=== PATIENT | female | born 1960 | race Caucasian/White ===

== ENCOUNTER 2016-12-15 18:35 | Emergency (ER) | payer BC ==
[~2016-12-15] VITALS: Ht 160 cm; Wt 86.0 kg
[2016-12-15 18:39] VITALS: Ht 160 cm; Wt 86.0 kg
--- NOTE | 2016-12-15 22:29 | ERA ---
ER Documentation Chief Complaint Date/Time DATE: 12/15/16 TIME: 22:29 Chief Complaint headaches x 3 weeks HPI The patient is a 55-year-old female, presenting to the ER because of diffuse headache for the last 3 weeks. She was seen by her physician who prescribed Naprosyn. She denies fever, chills, facial pain, neck pain, chest pain, abdominal pain, vomiting, dysuria, diarrhea. She does not smoke nor drink Past medical history: History of left breast cancer, status post chemotherapy and radiation therapy in 2000, hypertension Past Surgical history: Left mastectomy with reconstruction, left knee arthroscopy ROS All systems reviewed and are negative except as per history of present illness. Medications Home Meds Active Scripts Ibuprofen* (Motrin*) 600 Mg Tab, 600 MG PO Q6, #20 TAB Prov:CHENCHO WASHINGTON MD 12/16/16 Reported Medications Atenolol* (Atenolol*) 100 Mg Tablet, 50 MG PO DAILY, #30 TAB TAKE HALF TABLET (50mg) PO DAILY 12/16/16 Naproxen* (Naproxen*) 500 Mg Tablet, 500 MG PO BID Y for PAIN, TAB 12/16/16 Allergies Allergies: Coded Allergies: No Known Allergy (Unverified , 12/15/16) PMhx/Soc History of Surgery: Yes (L BREAST FOR CA, MASTECTOMY WITH CONSTRUCTION) Anesthesia Reaction: No Hx Neurological Disorder: No Hx Respiratory Disorders: No Hx Cardiac Disorders: Yes (HTN) Hx Psychiatric Problems: No Hx Miscellaneous Medical Probl: Yes (CHEMO THERAPY 11 YEARS AGO ) Hx Alcohol Use: No Hx Substance Use: No Hx Tobacco Use: No Physical Exam Vitals Vital Signs Date Time Temp Pulse Resp B/P Pulse Ox O2 Delivery O2 Flow Rate FiO2 12/15/16 18:39 97.1 70 20 190/106 98 Physical Exam Const: No acute distress. Head: Atraumatic. Eyes: Normal Conjunctiva. ENT: Normal External Ears, Nose and Mouth. Neck: Full range of motion. No meningismus. Resp: Clear to auscultation bilaterally. Cardio: Regular rate and rhythm. Abd: Soft, non distended, normal bowel sounds, non tender. Skin: No petechiae or rashes. Back: No midline or flank tenderness. Ext: No cyanosis, or edema. Neur: Awake and alert. No focal deficit Psych: Normal Mood and Affect. Result Diagram: 10/13/17 2318 12/15/168 Results 24 hrs Laboratory Tests Test 12/15/16 23:18 White Blood Count 9.010^3/ul Red Blood Count 4.6410^6/ul Hemoglobin 14.2g/dl Hematocrit 42.8% Mean Corpuscular Volume 92.2fl Mean Corpuscular Hemoglobin 30.6pg Mean Corpuscular Hemoglobin Concent 33.2g/dl Red Cell Distribution Width 13.7% Platelet Count 24327^3/UL Mean Platelet Volume 10.2fl Neutrophils % 41.1% Lymphocytes % 49.1% Monocytes % 7.0% Eosinophils % 2.1% Basophils % 0.4% Nucleated Red Blood Cells % 0.0/100WBC Neutrophils # 3.710^3/ul Lymphocytes # 4.410^3/ul Monocytes # 0.610^3/ul Eosinophils # 0.210^3/ul Basophils # 0.010^3/ul Nucleated Red Blood Cells # 0.010^3/ul Prothrombin Time 12.7Sec Prothrombin Time Ratio 1.0 INR International Normalized Ratio 0.95 Activated Partial Thromboplast Time 27.5Sec Sodium Level 134mmol/L Potassium Level 4.2mmol/L Chloride Level 105mmol/L Carbon Dioxide Level 26mmol/L Anion Gap 7 Blood Urea Nitrogen 16mg/dl Creatinine 0.69mg/dl Glucose Level 109mg/dl Calcium Level 9.9mg/dl Current Medications Medications (Trade) Dose Ordered Sig/Tyrese Route PRN Reason Start Time Stop Time Status Last Admin Dose Admin Acetaminophen/ Hydrocodone Bitart (Helen (5/325)) 1 tab ONCE ONCE PO 12/15/16 23:00 12/15/16 23:01 DC 12/15/16 23:26 Ondansetron HCl (Zofran Odt) 4 mg ONCE STAT ODT 12/15/16 22:43 12/15/16 22:45 DC 12/15/16 23:26 Procedures/[place] [id number] Radiology Main Line: [phone] DIAGNOSTIC IMAGING REPORT Patient: PAUL KIRK : 1960 Age: 55 Sex: F MR #: [id number] DOS: 12/15/16 2243 Ordering MD: CHENCHO WASHINGTON MD Location: E/R Room/Bed: PROCEDURE: Noncontrast CT Head. CLINICAL INDICATION: Pain. TECHNIQUE: Noncontrast CT of the head was obtained. The administered radiation dose was CTDI vol = 45 mGy, DLP = 720 mGy-cm. One or more of the following dose reduction techniques were used: automated exposure control, adjustment of the mA and/or kV according to patient size and/or use of iterative reconstruction technique. COMPARISON: No pertinent prior examinations were submitted for comparison. FINDINGS: The ventricles and sulci are within normal limits. There is no acute intracranial hemorrhage or extra-axial fluid collection. There is no mass effect. No midline shift is identified. There is no loss of esqueda-white differentiation to suggest acute infarction. The orbits are within normal limits. The paranasal sinuses and mastoid air cells are without fluid. No destructive osseous lesion is identified. IMPRESSION: No acute findings. RPTAT: HIKT .Jose Ibrahim MD, MD Date Time Electronically viewed and signed by .Jose Ibrahim MD, MD on 12/15/2016 23:30 .T/ CC: CHENCHO WASHINGTON MD MEDICAL MAKING DECISION: The patient is a 55-year-old female, presenting with acute cephalgia of unclear etiology. She was treated with Helen 5 mg p.o. for her headache and Zofran ODT for nausea with good response. Blood Pressure improved The differential diagnoses considered include but are not limited to subarachnoid hemorrhage, occult trauma, CVA, meningitis, encephalitis, hypertension, tension, migraine, cluster, narcotic withdrawal, cervical spine disease. Departure Diagnosis: Primary Impression: Headache Condition: Good Comments She was discharged with Motrin I discussed the findings with the patient. I advised the patient to follow-up with the primary physician in about 1-2 days, sooner if needed and return if any concern. CHENCHO WASHINGTON MD Dec 15, 2016 22:29
[2016-12-15] MEDS ORDERED: ONDANSETRON (ODT) 4 MG TAB ODT STA (22:43)
[2016-12-15] MEDS ORDERED: HYDROCODONE/APAP (5/325) TAB PO ONE (23:00)
--- NOTE | 2016-12-15 23:30 | RADRPT ---
PROCEDURE: Noncontrast CT Head. CLINICAL INDICATION: Pain. TECHNIQUE: Noncontrast CT of the head was obtained. The administered radiation dose was CTDI vol = 45 mGy, DLP = 720 mGy-cm. One or more of the following dose reduction techniques were used: automate d exposure control, adjustment of the mA and/or kV according to patient size and/or use of iterative reconstruction technique. COMPARISON: No pertinent prior examinations were submitted for comparison. FINDINGS: The ventricles and sulci are within normal limits. There is no acute intracranial hemorrhage or ext ra-axial fluid collection. There is no mass effect. No midline shift is identified. There is no loss of esqueda-white differentiation to suggest acute infarction. The orbits are within normal limits. The paranasal sinuses and mastoid air cells are without fluid. No destructive osseous lesion is identified. IMPRESSION: No acute findings. RPTAT: HIKT .Jose Ibrahim MD, MD Date Time Electronically viewed and signed by .Jose Ibrahim MD, on 12/15/2016 23:30 .T/
[2016-12-15 23:44] LABS: BASOPHILS % 0.4 % (0.0-2.0); EOSINOPHILS # 0.2 10^3/ul (0.0-0.5); EOSINOPHILS % 2.1 % (0.0-7.0); HEMATOCRIT 42.8 % (37.0-47.0); HEMOGLOBIN 14.2 g/dl (12.0-16.0); LYMPHOCYTES # 4.4 10^3/ul (0.8-2.9); LYMPHOCYTES % 49.1 % (15.0-51.0); MEAN CORPUSCULAR HEMOGLOBIN 30.6 pg (29.0-33.0); MEAN CORPUSCULAR HGB CONC 33.2 g/dl (32.0-37.0); MEAN CORPUSCULAR VOLUME 92.2 fl (82.0-101.0); MEAN PLATELET VOLUME 10.2 fl (7.4-10.4); MONOCYTE # 0.6 10^3/ul (0.3-0.9); NEUTROPHIL # 3.7 10^3/ul (1.6-7.5); NEUTROPHILS % 41.1 % (39.0-77.0); PLATELET COUNT 287 10^3/UL (140-415); RED BLOOD COUNT 4.64 10^6/ul (4.20-5.40); RED CELL DISTRIBUTION WIDTH 13.7 % (11.5-14.5)
[2016-12-15 23:57] LABS: INR 0.95; PROTIME 12.7 Sec (12.2-14.2)
[2016-12-15 23:58] LABS: CALCIUM 9.9 mg/dl (8.4-10.2); CREATININE 0.69 mg/dl (0.44-1.00); PARTIAL THROMBOPLASTIN TIME 27.5 Sec (25.0-35.0); POTASSIUM 4.2 mmol/L (3.5-5.1)
[2016-12-16] MEDS ORDERED: ATEN100T PO
[2016-12-16] MEDS ORDERED: NAPR-688 PO
[2016-12-16] MEDS ORDERED: IBUP-1542 PO (00:12)
[2016-12-16 00:42] VITALS: BP 135/90; PULSE 63; RESP 16; TEMP 98.6
== END 2016-12-16 00:44 | disposition home or self-care (01) ==
LOC: E/R 18:35
DX: R51 Headache (principal); R40.2252 Coma scale, best verbal response, oriented, at arrival to emergency department; I10 Essential (primary) hypertension; R40.2142 Coma scale, eyes open, spontaneous, at arrival to emergency department; R40.2362 Coma scale, best motor response, obeys commands, at arrival to emergency department; Z85.3 Personal history of malignant neoplasm of breast
CPT/HCPCS: 36415; 70450; 80048; 85025; 85610; 85730